=== PATIENT | male | born 1955 | race Caucasian/White ===

== ENCOUNTER 2017-04-21 14:17 | Emergency (ER) | payer OTHER ==
[2017-04-21 14:50] VITALS: BP 135/73
--- NOTE | 2017-04-21 15:38 | UC ---
Skin Complaint HPI - HPI Summary HPI Summary: Patient presents with complaints of left hand swelling, and some pain with formation of a fist. He states two weeks ago he was in [place], and did alot of heavey lifting, but reports no insect bites, or direct trauma. He states he has pain with flexion, and he notice some discomfort Thursday when playing the guitar. He states there is soft tissue swelling over the back of his hand, denies any joint pain, red streaks or warmth. He is left hand dominant. - History of Current Complaint Chief Complaint: UCUpperExtremity Time Seen by Provider: 04/21/17 15:17 Stated Complaint: HANDS SWELLING Hx Obtained From: Patient Onset/Duration: Gradual Onset, Lasting Days Skin Exposure Onset/Duration: Days Ago Onset Severity: Mild Current Severity: Moderate Location: Diffuse, Hand (Left) Character: Painful Aggravating: Touch Alleviating: Other - rest Associated Signs & Symptoms: Positive: Tenderness Related History: Other: - heavy lifting - Allergy/Home Medications Allergies/Adverse Reactions: Allergies Allergy/AdvReac Type Severity Reaction Status Date / Time Bee Venom Allergy Anaphylatic Verified 04/21/17 14:51 Shock Home Medications: Home Medications Cyclobenzaprine TAB* [Flexeril 10 MG TAB*] 10 mg PO PRN 04/21/17 [History] Review of Systems Constitutional: Negative Motor: Other - swelling and pain back of left hand. All Other Systems Reviewed And Are Negative: Yes PMH/Surg Hx/FS Hx/Imm Hx Previously Healthy: Yes - Surgical History Surgical History: Yes Surgery Procedure, Year, and Place: bilat hernia repair - Social History Alcohol Use: Daily Substance Use Type: None Smoking Status (MU): Never Smoked Tobacco Physical Exam Triage Information Reviewed: Yes Appearance: Well-Appearing Vital Signs: Initial Vital Signs Temp 98 F 04/21/17 14:25 Pulse 75 04/21/17 14:25 Resp 16 04/21/17 14:25 BP 134/76 04/21/17 14:25 Pulse Ox 99 04/21/17 14:25 Vital Signs Reviewed: Yes Eye Exam: Normal ENT Exam: Normal Neck exam: Normal Respiratory Exam: Normal Cardiovascular Exam: Normal Abdominal Exam: Normal Musculoskeletal: Positive: Edema @ - left hand doral aspect, soft tissue swelling noted over the third distal MC area. joint all nontender. Vasc. radial and ulnar pulses intact. cap refill less that 3 seconds. neuro,no deficits. rom intact all planes. Skin Exam: Normal Course/Dx - Course Course Of Treatment: Patient presents with 4 day onset left hand with swelling, and mild pain with flexion. joints are nontender. clincial presentation consisent with mild cellulitis, or tendonitis due to heav lifting. There was no blunt truama so I did not feel xrays would be beneficial. I discussed with patient trail of keflex, and medrol dose pack to see if symtpoms improved. and to rest the hand. if for any reason his symtpoms do not improve he would then need to follow up with his PCP as additional testing and imaging would then be warrented. he verbalized understanding and was in agreement with the discharge plan. - Differential Diagnoses - Skin Complaint Differential Diagnoses: Cellulitis - Diagnoses Provider Diagnoses: cellulitis Discharge - Discharge Plan Condition: Stable Disposition: HOME Prescriptions: Cephalexin CAP* [Keflex CAP*] 500 mg PO QID #40 cap Methylprednisolone [Medrol Dosepak 4 MG*] 0 mg PO .SEE HOMERO INSTRUCTION #1 tab Patient Education Materials: Cellulitis (ED) Referrals: Duane Klein MD [Primary Care Provider] -
== END 2017-04-21 15:36 | disposition home or self-care (01) ==
LOC: UCEAST 14:17
DX: L03.114 Cellulitis of left upper limb (principal)
CPT/HCPCS: 99211; G0463

== ENCOUNTER 2018-09-23 06:20 | Day surgery (SDC) | payer BC ==
[~2018-09-23 06:20] MED LIST: Buffered Lidocaine 0.9% SYRIN* 5 ML/SYR SYRINGE INTRADERM ONE
[2018-09-23] MEDS ORDERED: Lidocaine 1% INJ* 10 MG/ML 30 ML SDV ONE (07:06)
[2018-09-23] MEDS ORDERED: Betamethasone INJ* 6 MG/ML 5 ML VIAL (30 MG) ONE (07:06)
[2018-09-23] MEDS ORDERED: Naloxone* 0.4 MG/ML 1 ML VIAL IV PRN (07:13)
[2018-09-23] MEDS ORDERED: fentaNYL* 50 MCG/ML 2 ML VIAL (100 MCG VIAL) ONE (07:19)
[2018-09-23] MEDS ORDERED: Propofol* 10 MG/ML 20 ML BTL IV PUSH ONE (07:19)
[2018-09-23] MEDS ORDERED: Lidocaine 2% PF * 5 ML VIAL ONE (07:19)
[2018-09-23] MEDS ORDERED: Bupivacaine 0.25% SDV* 30 ML ONE (07:24)
[2018-09-23 08:32] VITALS: BP 129/84
--- NOTE | 2018-09-23 22:46 | OP ---
DATE OF OPERATION: 09/23/18 [facility] DATE OF : 51 SURGEON: Amadeo Silveira MD MATERIAL HANDLING TECHNICIAN: KWASI Alberto ANESTHESIOLOGIST: Dr. Reyna. ANESTHESIA: Local MAC. PRE-OP DIAGNOSES: 1. Left carpal tunnel syndrome. 2. Left thumb carpometacarpal arthritis. POST-OP DIAGNOSES: 1. Left carpal tunnel syndrome. 2. Left thumb carpometacarpal arthritis. OPERATIVE PROCEDURE: 1. Left open carpal tunnel release. 2. Left thumb carpometacarpal joint steroid injection. INDICATIONS: Zeeshan has carpal tunnel and CMC joint arthritis that has been progressive. We talked about risks and benefits and treatments. We plan to proceed with a left carpal tunnel release and a steroid injection into the joint. ESTIMATED BLOOD LOSS: 1 mL. COMPLICATIONS: None. FINDINGS: See above and below. DESCRIPTION OF PROCEDURE: Zeeshan was seen in the preoperative holding area. The correct site, side, and procedure were identified. We came back to the operating room where the patient was positioned supine on the hand table. We had a time-out and I cleaned the skin with alcohol. I first injected the left thumb CMC joint with 1 mL of 1% lidocaine and 6 mg of betamethasone. I then anesthetized the operative area and then we prepped and draped the arm in the usual fashion. A time-out was performed. The arm was exsanguinated with the Esmarch and the tourniquet inflated to 250 mmHg. A longitudinal incision in the proximal palm was made. Dissection was carried down through subcutaneous tissue and palmar fascia. The transverse carpal ligament was released just off the radial aspect of the hook of the hamate from distal to proximal. Proximally, I released the subcutaneous tissue and retracted this out of the way and then I released the remainder of the transverse carpal ligament and distal antebrachial fascia to a level several centimeters proximal to the wrist flexion crease. Once I checked and confirmed that there was no compression on the nerve and the release was complete, we irrigated out the wound. The skin was closed with 4-0 nylon suture. Soft dressings were applied and he was taken to the recovery room in stable condition. [id number]/CPS #: [id number]
== END 2018-09-23 08:32 | disposition home or self-care (01) ==
LOC: OREAST 06:20
PROVIDERS: ATTEND Orthopaedic Surgery Hand Surgery
DX: G56.02 Carpal tunnel syndrome, left upper limb (principal); M18.12 Unilateral primary osteoarthritis of first carpometacarpal joint, left hand
CPT/HCPCS: J0702; J2704; J3010